=== PATIENT | male | born 1945 | race Caucasian/White ===

== ENCOUNTER → 2018-08-25 08:08 | Outpatient (CLI) | payer MEDICARE, SELFPAY ==
[2018-08-25 09:28] LABS: HEMOLYSIS < 15 (0-50); Hemoglobin A1C% w Est Avg Glu 5.5 % (4.0-6.0)
[2018-08-25 09:42] LABS: Alanine Aminotransferase 29 IU/L (21-72); Albumin Globulin Ratio 1.4 (1.0-2.8); Alkaline Phosphatase 55 U/L (38-126); Aspartate Aminotransferase 24 IU/L (17-59); BUN Creatinine Ratio 38.8 (6-22); Bilirubin Total 0.6 mg/dL (0.2-1.3); Blood Urea Nitrogen 31 mg/dL (9-20); Calcium 9.1 mg/dL (8.4-10.2); Carbon Dioxide 31 mmol/L (22-32); Chloride 104 mmol/L (98-107); Cholesterol 201 mg/dL (140-199); Estimated Glomerular Filt Rate > 60.0 mL/min (>60); Globulin 2.9 g/dL (1.7-4.1); Glucose 95 mg/dL (80-110); HDL Cholesterol 46 mg/dL (40-60); LDL Cholesterol Calculated 134 mg/dL (<100); Potassium 4.3 mmol/L (3.4-5.1); Sodium 144 mmol/L (137-145); Total Protein 6.9 g/dL (6.3-8.2); Triglycerides 104 mg/dL (35-150)
[2018-08-25 10:37] LABS: Thyroid Stimulating Hormone 2.86 uIU/mL (0.47-4.68)
[2018-08-25 14:04] LABS: Add Manual Diff / Slide Review NO; Eosinophils Percent Auto 5.1 % (2-4); Hematocrit 44.1 % (41-53); Hemoglobin 14.6 g/dL (13.5-17.5); Lymphocytes Percent Auto 28.6 % (25-40); Mean Corpuscular HGB Conc 33.1 % (30-36); Mean Corpuscular Hemoglobin 30.3 PG (26-34); Mean Corpuscular Volume 91.5 fL (80-100); Monocytes Percent Auto 8.7 % (3-14); Neutrophils Absolute Auto 3100 /uL (3000-5900); Neutrophils Percent Auto 55.6 % (50-75); Platelet Count 162 X10^3/uL (150-400); Red Blood Cell Count 4.82 X10^6/uL (4.5-5.9); Red Cell Distribution Width 13.6 % (11.6-14.8); White Blood Cell Count 5.6 X10^3/uL (4.5-11.0)
[2018-08-25 20:15] LABS: Prostate Specific Antigen 0.441 ng/mL (0.10-4.00)
== END ==
PROVIDERS: PCP Internal Medicine; Visit Provider Internal Medicine
DX: E88.81 Metabolic syndrome and other insulin resistance (principal); C61 Malignant neoplasm of prostate; E78.41 Elevated Lipoprotein(a)
CPT/HCPCS: 36415; 80053; 80061; 83036; 84153; 84443; 85025

== ENCOUNTER → 2018-10-28 13:43 | Outpatient (CLI) | payer MEDICARE, SELFPAY ==
--- NOTE | 2018-10-28 | DI.ECHO.S_ITS ---
[facility] +---------+ : : [address] : : : : [id number] : : : : Phone: [phone]+ Echocardiogram Report + + :Name: JANELL CHAVEZ A Study Date: 10/28/2018 Height: 72 in : :[facility] Weight: 175 lb : : Gender: Male BSA: 2.0 m2 : :: 1945 Age: 73 yrs BP: 170/90 mmHg: :Reason For Study: Hypertension : : Performed By: Darlin Hdez : :Referring: ZAHRA NINO S : + + Interpretation Summary Left ventricular systolic function is normal without focal wall motion abnormalities with the ejection fraction visually estimated to be 60-65%. The left ventricle is normal in size with wall thickness that is borderline increased. Diastolic parameters suggest probable normal left ventricular diastolic function and normal filling pressures. The right ventricle is normal in size and function. The right ventricular systolic pressure is estimated to be at least 22 mmHg based on an estimated right atrial pressure of 3 mm Hg. The left atrium is borderline dilated. There is mild mitral regurgitation, mild pulmonic regurgitation, and mild to moderate aortic regurgitation. The aortic root is moderately dilated and the ascending aorta is mildly enlarged. Procedure: A two-dimensional transthoracic echocardiogram with color flow and Doppler was performed. The study quality was technically good. There is no prior echocardiogram noted for this patient. Left Ventricle: The left ventricle is normal in size. Left ventricular wall thickness is borderline increased. There is no ventricular septal defect visualized. Left ventricular systolic function is normal without focal wall motion abnormalities. The ejection fraction is estimated to be 60-65%. Diastolic parameters suggest probable normal left ventricular diastolic function and normal filling pressures. Right Ventricle: The right ventricle is normal in size and function. Atria: The left atrium is borderline dilated. Right atrial size is normal. The interatrial septum is intact with no evidence for an atrial septal defect. There is no Doppler evidence for an interatrial shunt. Mitral Valve: The mitral valve leaflets are slightly calcified. The mitral valve leaflets appear mildly thickened, but open well. There is mild mitral regurgitation. Aortic Valve: The aortic valve is trileaflet. The aortic valve opens well. There is mild to moderate aortic regurgitation. There are two aortic regurgitant jets. Tricuspid Valve: The tricuspid valve leaflets are thin and pliable. There is trace tricuspid regurgitation. The right ventricular systolic pressure is estimated to be at least 22 mmHg based on an estimated right atrial pressure of 3 mm Hg. Pulmonic Valve: The pulmonic valve leaflets are thin and pliable; valve motion is normal. There is mild pulmonic regurgitation. Great Vessels: The aortic root is moderately dilated. The ascending aorta is mildly enlarged. The aortic arch is normal in size. The IVC is of normal diameter and collapses greater than 50% with a sniff. This suggests a low right atrial pressure of 3 mm Hg. Pericardium/ Pleura There is no pericardial effusion. MMode/2D Measurements & Calculations LVIDd: 4.8 cm LVOT diam: 2.5 cm LVIDs: 3.2 cm Ao root diam: 4.4 cm FS: 33.5 % Aortic Jxn: 3.1 cm EPSS: 0.53 cm asc Aorta Diam: 3.7 cm IVSd: 1.1 cm Ao Arch Diam (Prox Trans): 2.6 cm LVPWd: 1.1 cm LV roman. diameter/BSA (cm/m^2): 2.4 LV sys. diameter/BSA (cm/m^2): 1.6 LA A2 area: 22.7 cm2 RA long axis: 4.5 cm LA A4 area: 17.1 cm2 RA area: 11.9 cm2 LA length (vol): 4.8 cm RA vol: 26.5 ml LA vol: 68.1 ml RA : 13.2 ml/m2 LA vol index: 33.8 ml/m2 IVC diam: 1.4 cm RVD1 (basal): 3.7 cm RVD2 (mid): 3.4 cm TAPSE: 2.6 cm Doppler Measurements & Calculations Ao V2 max: 131.4 cm/sec LVOT Max Colt: 90.4 cm/sec Ao V2 mean: 83.7 cm/sec LV V1 max P.3 mmHg Ao max P.9 mmHg LV V1 VTI: 21.1 cm Ao mean P.3 mmHg PHONG(I,D): 3.7 cm2 Ao V2 VTI: 28.8 cm PHONG(V,D): 3.5 cm2 sev ratio: 0.73 PHONG indexed to BSA (cm^2/m^2): 1.9 AI P1/2t: 748.2 msec AI dec slope: 193.0 cm/sec2 MV E max colt: 66.7 cm/sec TR max colt: 217.5 cm/sec MV A max colt: 53.5 cm/sec TR max P.9 mmHg MV E/A: 1.2 PA V2 max: 67.3 cm/sec Med Peak E' Colt: 7.7 cm/sec PA V2 mean: 49.8 cm/sec E/E' med: 8.7 PA mean P.0 mmHg Lat Peak E' Colt: 9.2 cm/sec PA Accel Time: 0.09 sec E/E' lat: 7.3 E/e' average: 8.0 MV dec time: 0.18 sec MV P1/2t: 53.1 msec MV P1/2t max colt: 66.8 cm/sec MVA(P1/2t): 4.1 cm2 Reading Physician:THANG
== END ==
PROVIDERS: PCP Internal Medicine; Visit Provider Internal Medicine
DX: I08.0 Rheumatic disorders of both mitral and aortic valves (principal); I10 Essential (primary) hypertension
CPT/HCPCS: 93306

== ENCOUNTER → 2019-09-01 07:56 | Outpatient (CLI) | payer MEDICARE, SELFPAY ==
[2019-09-01 08:26] LABS: Add Manual Diff / Slide Review NO; Basophils Absolute Auto 100 /uL (0-100); Eosinophils Absolute Auto 200 /uL (0-450); Eosinophils Percent Auto 3.8 % (2-4); Hematocrit 43.2 % (41-53); Hemoglobin 14.2 g/dL (13.5-17.5); Lymphocytes Absolute Auto 1600 /uL (1100-4500); Mean Corpuscular HGB Conc 32.8 % (30-36); Mean Corpuscular Hemoglobin 30.2 PG (26-34); Mean Corpuscular Volume 92.1 fL (80-100); Monocytes Absolute Auto 500 /uL (0-900); Monocytes Percent Auto 8.4 % (3-14); Neutrophils Absolute Auto 3300 /uL (1500-7000); Neutrophils Percent Auto 58.8 % (50-75); Platelet Count 159 X10^3/uL (150-400); Red Blood Cell Count 4.68 X10^6/uL (4.5-5.9); Red Cell Distribution Width 13.5 % (11.6-14.8); White Blood Cell Count 5.6 X10^3/uL (4.5-11.0)
[2019-09-01 09:34] LABS: Thyroid Stimulating Hormone 3.17 uIU/mL (0.47-4.68)
[2019-09-01 10:53] LABS: HEMOLYSIS < 15 (0-50)
[2019-09-01 11:03] LABS: Alanine Aminotransferase 24 IU/L (21-72); Albumin 3.9 g/dL (3.5-5.0); Albumin Globulin Ratio 1.5 (1.0-2.8); Alkaline Phosphatase 62 U/L (38-126); Aspartate Aminotransferase 21 IU/L (17-59); BUN Creatinine Ratio 36.3 (6-22); Bilirubin Total 0.4 mg/dL (0.2-1.3); Blood Urea Nitrogen 29 mg/dL (9-20); Calcium 9.3 mg/dL (8.4-10.2); Carbon Dioxide 31 mmol/L (22-32); Chloride 104 mmol/L (98-107); Cholesterol 181 mg/dL (140-199); Estimated Glomerular Filt Rate > 60.0 mL/min (>60); Globulin 2.6 g/dL (1.7-4.1); Glucose 91 mg/dL (80-110); HDL Cholesterol 42 mg/dL (40-60); LDL Cholesterol Calculated 118 mg/dL (<100); Potassium 4.1 mmol/L (3.4-5.1); Sodium 140 mmol/L (137-145); Total Protein 6.5 g/dL (6.3-8.2); Triglycerides 106 mg/dL (35-150)
[2019-09-02 16:46] LABS: Prostate Specific Antigen 0.438 ng/mL (0.10-4.00)
== END ==
PROVIDERS: PCP Internal Medicine; Visit Provider Internal Medicine
DX: I10 Essential (primary) hypertension (principal); E78.49 Other hyperlipidemia; C61 Malignant neoplasm of prostate
CPT/HCPCS: 36415; 80053; 80061; 84153; 84443; 85025

== ENCOUNTER → 2020-07-04 10:09 | Outpatient (CLI) | payer MEDICARE, SELFPAY ==
[2020-07-05 09:14] LABS: COVID19 Sendout Not Detected (Not Detect)
== END ==
PROVIDERS: PCP Internal Medicine; Visit Provider Physician Assistant
DX: Z11.59 Encounter for screening for other viral diseases (principal)
CPT/HCPCS: 87635

== ENCOUNTER 2020-07-07 06:41 | Day surgery (SDC) | payer MEDICARE, SELFPAY ==
[2020-07-07] MEDS: SODIUM CHLORIDE 0.9% 1,000 ML 200 ML IV (07:15)
[2020-07-07 07:21] VITALS: BP 169/97; PULSE 81; RESP 16; TEMP 36.3; O2SAT 98; BMI 23.9
--- NOTE | 2020-07-07 07:33 | PM.HP.1 ---
History of Present Illness History of Present Illness Date Patient Seen: 07/07/20 Time Patient Seen: 07:33 Chief complaint: SDC Narrative: This is a 75-year-old man who is here for his 3rd screening colonoscopy. His 2 prior colonoscopies revealed no lesions, he was given 10 years between his colonoscopy procedures. He denies any blood in his stool in the melena, unexplained abdominal pain or unexplained weight loss. He denies any family history or personal history of colon polyps or colon cancers. This is he is otherwise well of and hypertension. ROS: Thirteen system review is otherwise negative other than as mentioned below and in HPI. PE: GENERAL: Well groomed and cooperative. Appears stated age. Answers questions promptly and appropriately. Vital signs noted. HENT: Normocephalic, atraumatic. Hearing intact. EYES: Conjunctiva pink, sclera white, no periorbital swelling. CARDIOVASCULAR: Regular rate. No pedal edema. RESPIRATORY: Non-tachypneic, breathing comfortably on room air. GASTROINTESTINAL: Abdomen soft and non-distended GENITALURINARY: No flank tenderness. MUSCULOSKELETAL: Equal tone and mass bilaterally. SKIN: Warm, dry, soft, appropriate color for ethnicity. No other lesions, rashes, or wounds. NEURO: Alert and Oriented X 3. No gross sensory deficits, or cognitive issues. PSYCH: Appropriate affect and mood. Patient History Family & Social History Social History: household members spouse Tobacco & Substance use: Smoking Status Never smoker alcohol intake frequency 0-2 drinks per day Substance Use Type does not use Meds Home Medications and Allergies Home Medications Medication Instructions Recorded Confirmed Type losartan 25 mg PO DAILY 07/07/20 07/07/20 History metoprolol succinate 12.5 mg PO DAILY 07/07/20 07/07/20 History Allergies Allergy/AdvReac Type Severity Reaction Status Date / Time No Known Drug Allergies Allergy Unverified 07/04/20 10:07 Exam Vital Signs (past 8 hours): - 07/07/20 07:21 Temperature 97.4 F L Pulse Rate 81 Respiratory Rate 16 Blood Pressure 169/97 H Pulse Oximetry 98 Oxygen Delivery Method Room Air Assessment & Plan Assessment and plan (1) At average risk for colon cancer: Status: Acute Assessment & Plan narrative: Risks and benefits of screening colonoscopy and possible polypectomy were discussed with the patient including risk of bleeding, perforation, need for additional procedures, risks of anesthesia. The patient desires to proceed with the colonoscopy procedure. COVID-19 COVID-19 status: Negative Result date/Date tested (Pos, Neg/Pending): 07/04/20 Time Spent With Patient Time with patient: 15-24 minutes Quality VTE Deep Vein Thrombosis/Pulmonary Embolism Present on Admission: No
--- NOTE | 2020-07-07 07:40 | PM.OP.ENDO ---
Operative Date/Time/Diagnoses Date of procedure: 07/07/20 Time of procedure: 07:40 Pre-op diagnosis: Average risk for colon cancer, ten years since last colonoscopy Post-op diagnosis: other (Prominent bulge at the appendiceal orifice, needs to be evaluated with CT scan to rule out submucosal lesion or mucinous appendix.) Procedure & Clinicians Study performed: Colonoscopy Conscious sedation performed by the endoscopist Indications: 75 yo man here for screening colonoscopy. He has had two normal colonoscopies. The last one was ten years ago. No new symptoms since then. Surgeon: Christy Hurtado Procedure Notes SCOAP/Timeout: Performed Procedure in detail: The patient was brought to the room and placed in left lateral decubitus position with all bony prominences padded. A time-out was performed and then the patient was given procedural sedation starting with 4 mg of Versed and 100 mcg of fentanyl. Vitals were monitored throughout the procedure and remained stable. Once adequately sedated, the procedure was begun. A rectal exam was performed revealing no abnormalities. The colonoscope was then introduced to the rectum and advanced to the cecum in the usual fashion. The appendiceal orifice appeared prominent as though a submucosal lesion is present, or mucinous appendix. It was probed with cold forceps. Biopsy was not taken to the possibility of mucinous appendix which will need to be diagnosed on CT scan. The cecum was identified by the appendiceal orifice, the mucosal tri-fold, and the ileocecal valve. The scope was then retracted while rotating side to side and examining each mucosal fold. At the conclusion of the procedure retroflexion was performed and small grade 1-2 internal hemorrhoids without stigmata of bleeding were seen. The scope was then withdrawn from the rectum the procedure was concluded. The patient tolerated the procedure well and was transferred to the PACU in stable condition. Scope withdrawal time: 8 Sedation minutes: 14 Findings: other findings (Prominent appendiceal orifice, may be normal variant or submucosal lesion, or mucinous appendix) Specimen(s): none sent Complications: none Impression: Normal colon, no diverticulosis or polyps. The patient is a prominence at the appendiceal orifice, consistent with a possible submucosal mass or mucinous appendix. May also be normal anatomic variant Post-procedure Recommendations: Colonscopy in 10 years (As long as CT scan is normal) and Other recommendation (CT scan of abdomen and pelvis with IV contrast to rule out submucosal lesion at the base of the appendix) Follow up: as needed Disposition: PACU
[2020-07-07] MEDS: fentaNYL 250 MCG/5 ML INJ IV (07:44)
[2020-07-07] MEDS: MIDAZOLAM 5 MG/5 ML VIAL IV (07:45)
[2020-07-07 08:02] VITALS: BP 118/72; PULSE 55; RESP 10; TEMP 36.6; O2SAT 96
[2020-07-07 08:07] VITALS: BP 130/81; PULSE 64; RESP 11; O2SAT 97
[2020-07-07 08:15] VITALS: BP 130/77; PULSE 58; RESP 12; O2SAT 97
[2020-07-07 08:21] VITALS: BP 130/76; PULSE 55; RESP 12; TEMP 36.6; O2SAT 98
[2020-07-07 08:43] LABS: Estimated Glomerular Filt Rate > 60.0 mL/min (>60)
[2020-07-07 08:45] VITALS: BP 125/71; PULSE 54; RESP 16; TEMP 36.1; O2SAT 99
== END 2020-07-07 09:00 | disposition home or self-care (01) ==
PROVIDERS: PCP Internal Medicine; Referring Provider Internal Medicine; Visit Provider Surgery
PROC: 0DJD8ZZ Inspection of Lower Intestinal Tract, Via Natural or Artificial Opening Endoscopic (ICD-10-PCS; CPT 45378; principal; 2020-07-07 07:45)
DX: Z12.11 Encounter for screening for malignant neoplasm of colon (principal); K64.0 First degree hemorrhoids; K38.8 Other specified diseases of appendix
CPT/HCPCS: G0121; 36415; 82565; 99152; J2250; J3010

== ENCOUNTER → 2020-07-19 10:28 | Outpatient (CLI) | payer MEDICARE, SELFPAY ==
--- NOTE | 2020-07-19 11:36 | DI.CT.S_ITS ---
PROCEDURE: CT ABDOMEN PELVIS W CON INDICATIONS: prominence at base of appendix seen on colonoscopy TECHNIQUE: After the administration of oral and intravenous contrast, 5 mm thick sections acquired from the diaphragms to the symphysis. 5 mm thick coronal and sagittal reformats were performed. For radiation dose reduction, the following was used: automated exposure control, adjustment of mA and/or kV according to patient size. COMPARISON: None. FINDINGS: Image quality: Excellent. ABDOMEN: Lung bases: Lung bases are clear. Heart size is normal. Solid organs: Liver is normal in size. Well-circumscribed hypodense focus in the left lobe of the liver which has the appearance of a benign cyst or hemangioma. A few additional punctate hypodensities which are too small to further characterize. Gallbladder is unremarkable. Biliary system is non-dilated. Pancreas enhances normally. Spleen is normal in size and enhancement. Punctate hypodensity in the spleen likely a hemangioma. No adrenal nodules. Kidneys are normal in size and enhancement, without hydronephrosis. Small simple right renal cyst. Peritoneum and bowel: There is increased density at the origin of the appendix measuring 1.2 cm in length and 0.5 cm in width, (4/33). The appendix is not dilated. No calcified appendicolith. No periappendiceal stranding or fluid. The tip of the appendix measures 0.3 cm. No small bowel obstruction. No free fluid or air. Nodes and vessels: No retroperitoneal or mesenteric adenopathy. Aorta and inferior vena cava are normal in caliber. Miscellaneous: No ventral hernias. PELVIS: Genitourinary: Bladder is unremarkable. Prominent prostate gland with median lobe hypertrophy. Brachytherapy seeds. Miscellaneous: No inguinal hernias or adenopathy. Pelvic sidewall clips. Bones: No suspicious bony lesions. No vertebral body compression fractures. IMPRESSION: 1. Increased density at the origin of the appendix likely corresponding to the abnormality seen on prior colonoscopy. Primary diagnostic considerations include a small appendiceal neoplasm versus inspissated secretions. 2. Appendix is not dilated. 3. No adenopathy. 4. Prostate brachytherapy seeds. No sclerotic osseous lesion. Dictated by: Rio Vizcarra M.D. on 07/19/2020 at 11:23 Approved by: Rio Vizcarra M.D. on 07/19/2020 at 11:33
== END ==
PROVIDERS: PCP Internal Medicine; Referring Provider Surgery; Visit Provider Surgery
DX: R93.3 Abnormal findings on diagnostic imaging of other parts of digestive tract (principal); N28.1 Cyst of kidney, acquired
CPT/HCPCS: 74177; Q9967

== ENCOUNTER → 2020-08-20 14:41 | Outpatient (CLI) | payer MEDICARE, SELFPAY ==
[2020-08-21 07:45] LABS: COVID19 Sendout Not Detected (Not Detect)
== END ==
PROVIDERS: PCP Internal Medicine; Visit Provider Physician Assistant
DX: Z11.59 Encounter for screening for other viral diseases (principal)
CPT/HCPCS: 87635

== ENCOUNTER 2020-08-23 13:10 | Day surgery (SDC) | payer MEDICARE, SELFPAY ==
[2020-08-17 14:51] VITALS: BMI 23.7
[2020-08-23] VITALS (8 sets, daily range): BP systolic 121–178; BP diastolic 58–91; PULSE 60–83; RESP 10–17; TEMP 36.3–36.6; O2SAT 93–98; BMI 23.7
--- NOTE | 2020-08-23 | PATH_ITS ---
[facility] Accession Number: [id number] . 01 Material submitted: . appendix - APPENDIX . 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 Fibrous obliteration of tip. No evidence of dysplasia or malignancy. MRV 08/28/2020 1614 Local . 02 Electronically signed: . Bella Lucas MD, Pathologist NPI- [id number] . 01 Gross description: . Received in formalin, labeled appendix, and consists of a 5.0 cm in length by 0.5 cm in diameter vermiform appendix with attached agarwal-yellow lobulated mesoappendix measuring 5.0 x 4.0 x 2.5 cm in aggregate. There is a 2.0 x 0.9 cm portion of possible attached cecal mucosa at the margin. Sectioning reveals a 0.5 x 0.5 x 0.5 cm cyst located 0.1 cm from the margin, which contains a clear serous fluid. The mucosa is agarwal and the lumen measures 0.3 cm in diameter. No perforations are identified. [employer] sections are submitted. . A1: margin with a portion of cyst, perpendicularly sectioned (blue). A2-A4: remainder of vermiform appendix and other half of cyst. ([id number]) A5-A15: mesoappendix, entirely submitted. ([id number]) /MRV 08/25/2020 1654 Local . 02 Pathologist provided ICD-10: K38.2 . 02 CPT . 534331 Performed at: 01 [facility] [address] [place] [address] [address] [facility], [place], [place] [id number] MD Ernesto Hanson MD Phone: [phone] Performed at: [facility] [address] [place] [id number] MD Bella Lucas MD Phone: [phone]
--- NOTE | 2020-08-23 13:57 | PM.PREOP ---
Pre-operative Note COVID-19 COVID-19 status: Negative Result date/Date tested (Pos, Neg/Pending): 08/20/20 Interval Note History & Physical reviewed/Exam performed by Physician: Yes Changes to H&P: No
[2020-08-23] MEDS: LACTATED RINGERS 1,000 ML 100 ML IV (14:09)
--- NOTE | 2020-08-23 15:03 | SUR.OPER ---
Supine on padded OR bed, head on pillow, left arm padded and tucked at side, legs uncrossed, safety belt at thigh, tape over blanket over lower legs .
[2020-08-23] MEDS: PIPERACILLIN-TAZO 3.375 GM/50 ML FROZ.PIGGY IV (15:31)
[2020-08-23] MEDS: ONDANSETRON 4 MG/2 ML INJ IV (15:45)
[2020-08-23] MEDS: BUPIVACAINE 0.25% W/ EPI 30 ML VIAL INJ (15:49)
--- NOTE | 2020-08-23 15:53 | PM.OP.1 ---
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 Sequential compression devices were placed on both legs and turned on. Appropriate perioperative antibiotics were given prior to the start of surgery. General anesthesia was induced the patient was intubated. Mix catheter was placed sterilely in the bladder. The abdomen was prepped and draped in sterile fashion. Surgical time-out was conducted. Local anesthetic was injected under the skin just superior to the umbilicus and a 5 mm vertical incision was made at this site. The umbilical stalk was grasped with a Manpreet and elevated. A Veress needle was passed through the fascia into proper position. The position was tested with a saline drop test which was appropriate for intra-abdominal Veress needle placement. The abdomen was then insufflated in the usual fashion. Once insufflated to 15 mm Hg the Veress needle was removed and a 5 mm optical trocar was placed under direct vision using a 5 mm 30 degree scope. Once the camera was inside the abdomen I took a look around. There was no injury from port placement. Two additional ports were placed in a similar fashion in the suprapubic position and left lower quadrant. The umbilical port was upsized to a 12 mm port. The patient was placed in Trendelenburg position with right side up. The omentum and small bowel was swept the left and the cecum was exposed. The appendix was grasped and elevated. It was traced out to its base as it entered the cecum. The mesoappendix was divided with Ligasure. The ileal sail was divided to expose the base of the appendix and cecum. A blue load 60 mm endoscopic stapler was brought into the field and used to transect the cecum just below the base of the appendix. There was good hemostasis at the staple line. There was no spillage of stool. The specimen was removed from the abdomen using an Endocatch bag through the umbilical port. I used the laparoscopic suture passer and closed the umbilical port site with 0 Vicryl suture through the fascia. The specimen was opened on the back table, removing the staple line. A small subcutaneous nodule was palpated at the base of the appendix. No surrounding thickening of the cecum or appendix, evidence of inflammation, or other abnormalities were seen in the surrounding structures. At this point the insufflation was removed from the abdomen and the port sites were closed with, 3-O Vicryl in the subcutaneous layers, and 4 Monocryl in the skin. Each port site was sealed with Dermabond. Local anesthetic was given at each of the port sites and in the fascia. This concluded the procedure. At this point the needle sponge and instrument counts were correct. The appendix was passed off the table for pathology. The patient was awakened from anesthesia and extubated. The patient was transferred to the postanesthesia care unit in stable condition. Complications: none Post-operative Condition: stable Disposition: PACU
--- NOTE | 2020-08-23 15:57 | SUR.PHASEI ---
Pt states nausea has gone away with zofran, sitting up taking ice chips slowly
--- NOTE | 2020-08-23 16:45 | SUR.PHASEII ---
PT UP TO BR TO VOID,PT PASSED LUCIO SIZED CLOT AND HAD BLOODY URINE, DR COTTON NOTIFIED AND STATED OK TO D/C PT HOME WITH PREVIOUS INSTRUCTIONS, PT REMINDED THAT IF NO VOID FOR 8 HOURS HE IS TO COME TO THE ER. PT AND BOTH EXPRESSED READINESS TO GO HOME. OP SITES CLEAN AND DRY, TOLERATING FLUIDS AND DENIED NEED FOR PAIN MEDICATIONS AT THAT TIME.
== END 2020-08-23 16:38 | disposition home or self-care (01) ==
PROVIDERS: PCP Internal Medicine; Referring Provider Surgery; Visit Provider Surgery
PROC: 0DTJ4ZZ Resection of Appendix, Percutaneous Endoscopic Approach (ICD-10-PCS; CPT 44970; principal; 2020-08-23 14:45)
DX: K38.8 Other specified diseases of appendix (principal); Z85.46 Personal history of malignant neoplasm of prostate
CPT/HCPCS: 44970; 81015; 87086; J1100; J1885; J2250; J2405; J2543; J2704; J3010

== ENCOUNTER 2020-08-23 23:50 | Emergency (ER) | payer MEDICARE, SELFPAY ==
[2020-08-24 00:15] VITALS: BP 204/122; PULSE 125; RESP 29; TEMP 36.9; O2SAT 96; BMI 23.8
--- NOTE | 2020-08-24 00:17 | ED.MALEGU ---
HPI - Male Genitourinary General Chief complaint: Urogenital-Male Stated complaint: bladder in spasms had surgery today Time Seen by Provider: 08/24/20 00:02 Source: patient and family Mode of arrival: Ambulatory History of Present Illness HPI Narrative: Patient here with . Complaints of urinary retention. Last voided 6:00 p.m. tonight. 6 hours ago. 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 Mix catheter was placed for the surgery. Patient has history of enlarged prostate. Followed by his primary care physician no service by urology. Is not on Flomax. Patient states he was able to void after surgery 4 years discharged. Did have some blood in it/hematuria. At home continue to have hematuria and blood clots Related Data Home Medications Medication Instructions Recorded Confirmed losartan 25 mg PO DAILY 07/07/20 08/23/20 metoprolol succinate 12.5 mg PO DAILY 07/07/20 08/23/20 Previous Rx's Medication Instructions Recorded docusate sodium 100 mg PO BID #20 cap 08/23/20 oxycodone 5 mg PO Q4-6H PRN #20 tab 08/23/20 cephalexin 500 mg PO TID #15 cap 08/24/20 tamsulosin 0.4 mg PO DAILY #7 cap 08/24/20 Allergies Allergy/AdvReac Type Severity Reaction Status Date / Time No Known Drug Allergies Allergy Verified 08/23/20 13:46 Review of Systems Review of Systems Narrative: GENERAL: Denies chills, fatigue, malaise, fever, sweats. HEENT: Denies sinus pain, ear pain, sore throat, difficulty swallowing, dizziness. RESPIRATORY: Denies dyspnea, cough, wheezing, hemoptysis, sputum. CARDIOVASCULAR: Denies chest pain, palpitations, orthopnea, edema, GASTROINTESTINAL: Denies nausea, vomiting, abdominal pain, diarrhea, constipation, melena. : Denies dysuria, frequency, incontinence, complains of hematuria, urinary retention. MUSCULOSKELETAL: denies weakness, joint pain, or bony pain SKIN: Denies rash, skin lesions NEUROLOGIC: Denies weakness, headache, numbness, change in speech, confusion, seizures, incoordination. PSYCHIATRIC: No concerning psychosocial issues. ROS Unobtainable: All systems reviewed & are unremarkable except as noted in HPI and below Patient History Medical History Erectile dysfunction (Inactive) Essential hypertension (Inactive) History of brachytherapy (Inactive) History of prostate cancer (Inactive) HTN (hypertension) (Acute) Hx of brachytherapy (Acute 06/1998) Hypertensive heart disease without CHF (Inactive) Irregular heartbeat (Acute) Surgical History History of laparotomy (Inactive) Social History household members: spouse Smoking Status: Never smoker alcohol intake: current Smoking Status: Never smoker alcohol intake frequency: 0-2 drinks per day Substance Use Type: does not use Exam Narrative Exam Narrative: GENERAL: patient appears stated age. Well-nourished, well-developed patient, in no distress, not toxic HEAD: Atraumatic. Normocephalic. GASTROINTESTINAL: Abdomen soft, mild diffuse tenderness appropriate status post surgery. Incisions clean dry intact. Bowel sounds present. No peritoneal signs. : Pants off. Normal external exam. Tenderness over suprapubic region. NEURO: AOx4. SKIN: No rash or erythema of visible areas PSYCH: Not anxious, is cooperative Initial Vital Signs Initial Vital Signs: Vital Signs Temperature 98.5 F 08/24/20 00:15 Pulse Rate 125 H 08/24/20 00:15 Respiratory Rate 29 H 08/24/20 00:15 Blood Pressure 204/122 H 08/24/20 00:15 Pulse Oximetry 96 08/24/20 00:15 Course Orders Ordered: ED Orders 08/24/20 00:50 Urine Culture Stat Urine Microscopic Stat Discontinued Medications Cephalexin HCl (Keflex) 500 mg PO NOW ONE Stop: 08/24/20 01:56 Lidocaine HCl (Urojet) 5 ml TOP NOW ONE Stop: 08/24/20 00:13 Last Admin: 08/24/20 00:20 Dose: 5 ml Documented by: JANEL Tamsulosin HCl (Flomax) 0.4 mg PO NOW ONE Stop: 08/24/20 00:18 Last Admin: 08/24/20 01:05 Dose: 0.4 mg Documented by: ROSSANA Reevaluation(s) Reevaluation #1: Feels much better after Mix insertion. 550 mL of urine out Time: :03 Consultations Consultation #1: s/w dr go, patient can follow-up with the office, call in the morning for appointment. Time: 01:55 Vital Signs Vital signs: Vital Signs - 8 hr 08/24/20 00:15 08/24/20 00:35 08/24/20 00:36 Temperature 98.5 F Pulse Rate 125 H 94 H 93 H Respiratory Rate 29 H Blood Pressure 204/122 H 138/76 Pulse Oximetry 96 92 91 08/24/20 01:00 08/24/20 01:30 Temperature Pulse Rate 89 70 Respiratory Rate Blood Pressure 142/77 H 131/76 Pulse Oximetry 92 94 MDM - Male Genitourinary Differential Diagnosis Differential diagnosis: Likely urinary tract infection and acute retention of urine Lab Data Labs: Lab Results 08/24/20 Range/Units 00:50 Urine RBC >100/hpf H (0-5/HPF) Urine WBC 1-5/hpf (0-5/HPF) Ur Squamous Epith Cells 0-1 /hpf (0-5/HPF) Amorphous Sediment 1+ Urine Bacteria Few (2-10) H (None) Ur Culture Indicated? Specimen cultured MDM Narrative Medical decision making narrative: Appropriate for discharge home. Blood pressure improved at time of discharge feeling much better. Discharge Plan Departure Patient Disposition: Home Clinical Impression: Acute retention of urine Discharge Date/Time: 08/24/20 02:23 Instructions: How to Care for Your Mix Catheter -- Male, DI for Urinary Retention in Men Activity Restrictions/Additional Instructions: Call provided urology office in the morning for office recheck time and when to remove Mix bag. Return if worsening questions or concerns. Be sure to machine operator picker your antibiotic this morning at your pharmacy Prescriptions: New tamsulosin 0.4 mg capsule 0.4 mg PO DAILY Qty: 7 RF: 0 cephalexin 500 mg capsule 500 mg PO TID Qty: 15 RF: 0 No Action losartan 25 mg tablet 25 mg PO DAILY RF: 0 metoprolol succinate 25 mg tablet extended release 24 hr 12.5 mg PO DAILY RF: 0 oxycodone 5 mg tablet 5 mg PO Q4-6H PRN (Reason: Postoperative pain) Qty: 20 RF: 0 docusate sodium 100 mg capsule 100 mg PO BID Qty: 20 RF: 0 Referrals: Geoff Bains MD [Primary Care Provider] - Lavinia Go MD [Non-Staff] -
[2020-08-24] MEDS: LIDOCAINE 2% (UROJET) 5 ML GEL TOP (00:20)
[2020-08-24 00:35] VITALS: PULSE 94; O2SAT 92
[2020-08-24 00:36] VITALS: BP 138/76; PULSE 93; O2SAT 91
[2020-08-24 01:00] VITALS: BP 142/77; PULSE 89; O2SAT 92
[2020-08-24] MEDS: TAMSULOSIN 0.4 MG CAPSULE PO (01:05)
--- NOTE | 2020-08-24 01:06 | PC.NURSE ---
Pt had cath during surgery yesterday. states hasn't been able to urinate since 1800. When he urinated it was mostly blood.
[2020-08-24 01:14] LABS: Amorphous Sediment Urine 1+; Bacteria Urine Few (2-10); RBC Urine >100/HPF (0-5/HPF); Squamous Epithelial Cell Urine 0-1 /HPF (0-5/HPF); WBC Urine 1-5/HPF (0-5/HPF)
[2020-08-24 01:15] LABS: Culture Indicated Urine Specimen Cultured
[2020-08-24 01:30] VITALS: BP 131/76; PULSE 70; O2SAT 94
--- NOTE | 2020-08-24 01:47 | PC.NURSE ---
irrigated bladder with 2000ml of normal saline
== END 2020-08-24 02:23 | disposition home or self-care (01) ==
PROVIDERS: Emergency Provider Emergency Medicine; PCP Internal Medicine
DX: R33.8 Other retention of urine (principal); R31.9 Hematuria, unspecified
CPT/HCPCS: 51701; 99284

== ENCOUNTER → 2020-09-09 08:15 | Outpatient (CLI) | payer MEDICARE, SELFPAY ==
[2020-09-09 09:08] LABS: Add Manual Diff / Slide Review NO; Basophils Absolute Auto 100 /uL (0-100); Basophils Percent Auto 1.2 % (0-2); Eosinophils Absolute Auto 200 /uL (0-450); Eosinophils Percent Auto 2.6 % (2-4); Hematocrit 42.8 % (41-53); Hemoglobin 14.3 g/dL (13.5-17.5); Lymphocytes Absolute Auto 1700 /uL (1100-4500); Lymphocytes Percent Auto 26.4 % (25-40); Mean Corpuscular HGB Conc 33.4 % (30-36); Mean Corpuscular Hemoglobin 30.6 PG (26-34); Mean Corpuscular Volume 91.5 fL (80-100); Monocytes Absolute Auto 400 /uL (0-900); Monocytes Percent Auto 6.8 % (3-14); Neutrophils Absolute Auto 3900 /uL (1500-7000); Platelet Count 203 X10^3/uL (150-400); Red Blood Cell Count 4.68 X10^6/uL (4.5-5.9); Red Cell Distribution Width 13.4 % (11.6-14.8); White Blood Cell Count 6.3 X10^3/uL (4.5-11.0)
[2020-09-09 09:38] LABS: Alanine Aminotransferase 21 IU/L (<50); Albumin 4.3 g/dL (3.5-5.0); Albumin Globulin Ratio 1.4 (1.0-2.8); Alkaline Phosphatase 57 U/L (38-126); Aspartate Aminotransferase 20 IU/L (17-59); BUN Creatinine Ratio 25.3 (6-22); Bilirubin Total 0.5 mg/dL (0.2-1.3); Blood Urea Nitrogen 23 mg/dL (9-20); Calcium 9.6 mg/dL (8.4-10.2); Carbon Dioxide 30 mmol/L (22-32); Chloride 104 mmol/L (98-107); Cholesterol 211 mg/dL (140-199); Estimated Glomerular Filt Rate > 60.0 mL/min (>60); Globulin 3.1 g/dL (1.7-4.1); Glucose 102 mg/dL (80-110); HDL Cholesterol 35 mg/dL (40-60); HEMOLYSIS < 15 (0-50); LDL Cholesterol Calculated 134 mg/dL (<100); Potassium 4.1 mmol/L (3.4-5.1); Sodium 140 mmol/L (137-145); Total Protein 7.4 g/dL (6.3-8.2); Triglycerides 209 mg/dL (35-150)
[2020-09-09 10:01] LABS: Prostate Specific Antigen 0.522 ng/mL (0.10-4.00)
[2020-09-09 10:20] LABS: TSH w/ Reflex to FT4 2.37 uIU/mL (0.47-4.68)
== END ==
PROVIDERS: PCP Internal Medicine; Referring Provider Internal Medicine; Visit Provider Internal Medicine
DX: C61 Malignant neoplasm of prostate (principal); D46.4 Refractory anemia, unspecified; E03.9 Hypothyroidism, unspecified; E78.5 Hyperlipidemia, unspecified
CPT/HCPCS: 36415; 80053; 80061; 84153; 84443; 85025

== ENCOUNTER → 2020-12-15 15:56 | Outpatient (CLI) | payer MEDICARE, SELFPAY ==
[2020-12-15] MEDS: COVID-19 VACC #1, MRNA(MOD) 100 MCG/0.5 ML VIAL IM (16:38)
== END ==
PROVIDERS: PCP Internal Medicine; Visit Provider Internal Medicine
DX: Z23 Encounter for immunization (principal)
CPT/HCPCS: 0011A; 91301

== ENCOUNTER → 2021-01-12 15:33 | Outpatient (CLI) | payer MEDICARE, SELFPAY ==
[2021-01-12] MEDS: COVID-19 VACC #2, MRNA(MOD) 100 MCG/0.5 ML VIAL IM (15:39)
== END ==
PROVIDERS: PCP Internal Medicine; Visit Provider Internal Medicine
DX: Z23 Encounter for immunization (principal)
CPT/HCPCS: 0012A; 91301

== ENCOUNTER → 2021-08-17 08:31 | Outpatient (CLI) | payer MEDICARE, SELFPAY ==
[2021-08-17 09:14] LABS: Add Manual Diff / Slide Review NO; Basophils Absolute Auto 0 /uL (0-100); Basophils Percent Auto 0.9 % (0-2); Eosinophils Absolute Auto 300 /uL (0-450); Hematocrit 41.7 % (41-53); Lymphocytes Absolute Auto 1300 /uL (1100-4500); Mean Corpuscular HGB Conc 33.5 % (30-36); Mean Corpuscular Hemoglobin 30.5 PG (26-34); Mean Corpuscular Volume 91.1 fL (80-100); Monocytes Absolute Auto 400 /uL (0-900); Monocytes Percent Auto 7.9 % (3-14); Neutrophils Absolute Auto 3100 /uL (1500-7000); Neutrophils Percent Auto 61.2 % (50-75); Platelet Count 144 X10^3/uL (150-400); Red Blood Cell Count 4.58 X10^6/uL (4.5-5.9); Red Cell Distribution Width 13.8 % (11.6-14.8); White Blood Cell Count 5.1 X10^3/uL (4.5-11.0)
[2021-08-17 09:17] LABS: Hemoglobin A1C% w Est Avg Glu 5.5 % (4.0-6.0)
[2021-08-17 09:52] LABS: Alanine Aminotransferase 23 IU/L (<50); Albumin 3.9 g/dL (3.5-5.0); Albumin Globulin Ratio 1.4 (1.0-2.8); Alkaline Phosphatase 62 U/L (38-126); Aspartate Aminotransferase 26 IU/L (17-59); BUN Creatinine Ratio 27.3 (6-22); Bilirubin Total 0.3 mg/dL (0.2-1.3); Blood Urea Nitrogen 24 mg/dL (9-20); Calcium 9.2 mg/dL (8.4-10.2); Carbon Dioxide 33 mmol/L (22-32); Chloride 105 mmol/L (98-107); Cholesterol 205 mg/dL (140-199); Estimated Glomerular Filt Rate > 60.0 mL/min (>60); Globulin 2.8 g/dL (1.7-4.1); Glucose 96 mg/dL (80-110); HDL Cholesterol 42 mg/dL (40-60); HEMOLYSIS < 15 (0-50); LDL Cholesterol Calculated 135 mg/dL (<100); Potassium 4.4 mmol/L (3.4-5.1); Sodium 140 mmol/L (137-145); Total Protein 6.7 g/dL (6.3-8.2); Triglycerides 142 mg/dL (35-150)
[2021-08-17 10:18] LABS: Prostate Specific Antigen 0.461 ng/mL (0.10-4.00)
[2021-08-17 10:20] LABS: Thyroid Stimulating Hormone 2.54 uIU/mL (0.47-4.68)
== END ==
PROVIDERS: PCP Internal Medicine; Referring Provider Internal Medicine; Visit Provider Internal Medicine
DX: E88.81 Metabolic syndrome and other insulin resistance (principal); I10 Essential (primary) hypertension; C61 Malignant neoplasm of prostate; E78.41 Elevated Lipoprotein(a)
CPT/HCPCS: 36415; 80053; 80061; 83036; 84153; 84443; 85025

== ENCOUNTER → 2022-01-21 12:53 | Outpatient (CLI) | payer MEDICARE, SELFPAY ==
--- NOTE | 2022-01-21 | DI.RAD.S_ITS ---
PROCEDURE: XR FOOT RT MIN 3V INDICATIONS: Pain in right foot TECHNIQUE: 3 views of the foot were acquired. COMPARISON: None. FINDINGS: Bones: No fractures or dislocations. No suspicious bony lesions. Mild hallux valgus metatarsus prima varus alignment and medial bunion. 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 Soft tissues: No tibiotalar joint effusion. Achilles tendon appears normal. IMPRESSION: 1. No acute fracture. No osseous lesion. If clinical suspicion and/orsymptoms persist, further assessment with repeat plainfilms, or advanced imaging (e.g., CT, MRI, or bone scan) may be helpful for further assessment. 2. 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 Dictated by: José Antonio Eller [facility] Interpreted: Orlando Martin MD on 01/21/2022 at 14:10 Transcribed by: LILIYA on 01/21/2022 at 14:12 Approved by: Orlando Martin M.D. on 01/21/2022 at 20:00
== END ==
PROVIDERS: PCP Internal Medicine; Referring Provider Internal Medicine; Visit Provider Internal Medicine
DX: M19.071 Primary osteoarthritis, right ankle and foot (principal); M20.11 Hallux valgus (acquired), right foot; M21.611 Bunion of right foot; M79.671 Pain in right foot
CPT/HCPCS: 73630

== ENCOUNTER → 2022-02-08 13:50 | Outpatient (CLI) | payer MEDICARE, SELFPAY ==
--- NOTE | 2022-02-08 13:55 | DI.RAD.S_ITS ---
PROCEDURE: XR THORACIC SPINE 2V INDICATIONS: LOW BACK PAIN, CERVICAL SUBLUXATION TECHNIQUE: 2 views of the thoracic spine were acquired. COMPARISON: None. FINDINGS: Bones: No fractures or dislocations. No suspicious bony lesions. 12 pairs of ribs are noted, and appear intact where visualized. Endplate osteophytosis. Soft tissues: No paravertebral stripe thickening. IMPRESSION: No significant abnormality. Dictated by: Frank Van M.D. on 02/08/2022 at 14:25 Approved by: Frank Van M.D. on 02/08/2022 at 14:26
--- NOTE | 2022-02-08 13:55 | DI.RAD.S_ITS ---
PROCEDURE: XR CERVICAL SPINE 2V OR 3V INDICATIONS: LOW BACK PAIN, CERVICAL SUBLUXATION TECHNIQUE: 3 view(s) of the cervical spine were acquired. COMPARISON: None. FINDINGS: Bones: No fractures or dislocations to the C7 level. Mild disc height loss with endplate osteophytosis, most prominent at C5-7. The lateral masses of C1 appear intact on the odontoid view. No suspicious bony lesions. Soft tissues: No prevertebral soft tissue swelling. IMPRESSION: Cervical spine degeneration as detailed above. Dictated by: Frank Van M.D. on 02/08/2022 at 14:26 Approved by: Frank Van M.D. on 02/08/2022 at 14:26
--- NOTE | 2022-02-08 13:55 | DI.RAD.S_ITS ---
PROCEDURE: XR LUMBAR SPINE 2-3V INDICATIONS: LOW BACK PAIN, CERVICAL SUBLUXATION TECHNIQUE: 3 views of the lumbar spine were acquired. COMPARISON: None. FINDINGS: Bones: 5 [id number] vertebrae are present. Moderate disc height loss at L5-S1 with facet arthrosis. No vertebral body compression fractures. No suspicious bony lesions. Soft tissues: Overlying bowel gas pattern is normal. No suspicious soft tissue calcifications. IMPRESSION: Lumbar spine degeneration as detailed above. Dictated by: Frank Van M.D. on 02/08/2022 at 14:25 Approved by: Frank Van M.D. on 02/08/2022 at 14:25
== END ==
PROVIDERS: PCP Internal Medicine; Referring Provider Internal Medicine; Visit Provider Internal Medicine
DX: M50.322 Other cervical disc degeneration at C5-C6 level (principal); M54.50 Low back pain, unspecified; M99.11 Subluxation complex (vertebral) of cervical region; M51.37 Other intervertebral disc degeneration, lumbosacral region; M99.04 Segmental and somatic dysfunction of sacral region
CPT/HCPCS: 72040; 72070; 72100

== ENCOUNTER → 2022-11-19 09:15 | Outpatient (CLI) | payer MEDICARE, SELFPAY ==
[2022-11-19 10:17] LABS: Hematocrit 40.6 % (41-53); Hemoglobin 13.3 g/dL (13.5-17.5); Mean Corpuscular HGB Conc 32.8 % (30-36); Mean Corpuscular Hemoglobin 30.4 PG (26-34); Mean Corpuscular Volume 92.8 fL (80-100); Platelet Count 144 X10^3/uL (150-400); Red Blood Cell Count 4.37 X10^6/uL (4.5-5.9); Red Cell Distribution Width 13.7 % (11.6-14.8); White Blood Cell Count 5.3 X10^3/uL (4.5-11.0)
[2022-11-19 10:43] LABS: Alanine Aminotransferase 29 IU/L (<50); Albumin 3.8 g/dL (3.5-5.0); Albumin Globulin Ratio 1.2 (1.0-2.8); Alkaline Phosphatase 61 U/L (38-126); Aspartate Aminotransferase 23 IU/L (17-59); BUN Creatinine Ratio 28.4 (6-22); Bilirubin Total 0.4 mg/dL (0.2-1.3); Blood Urea Nitrogen 23 mg/dL (9-20); Calcium 8.8 mg/dL (8.4-10.2); Carbon Dioxide 28 mmol/L (22-32); Chloride 104 mmol/L (98-107); Cholesterol 143 mg/dL (140-199); Estimated Glomerular Filt Rate > 60 mL/min (>60); Globulin 3.2 g/dL (1.7-4.1); Glucose 102 mg/dL (80-110); HDL Cholesterol 42 mg/dL (40-60); HEMOLYSIS < 15 (0-50); LDL Cholesterol Calculated 73 mg/dL (<100); Potassium 4.2 mmol/L (3.4-5.1); Sodium 140 mmol/L (137-145); Triglycerides 141 mg/dL (35-150)
[2022-11-19 11:04] LABS: TSH w/ Reflex to FT4 2.32 uIU/mL (0.47-4.68)
[2022-11-19 11:15] LABS: Prostate Specific Antigen 0.583 ng/mL (0.10-4.00)
== END ==
PROVIDERS: PCP Internal Medicine; Referring Provider Internal Medicine; Visit Provider Internal Medicine
DX: D37.3 Neoplasm of uncertain behavior of appendix (principal); E78.2 Mixed hyperlipidemia; Z85.46 Personal history of malignant neoplasm of prostate; I10 Essential (primary) hypertension; N13.8 Other obstructive and reflux uropathy; N40.1 Benign prostatic hyperplasia with lower urinary tract symptoms
CPT/HCPCS: 36415; 80053; 80061; 84153; 84443; 85027

== ENCOUNTER → 2023-12-10 08:18 | Outpatient (CLI) | payer OTHER, SELFPAY ==
[2023-12-10 10:30] LABS: Alanine Aminotransferase 41 IU/L (<50); Albumin 3.8 g/dL (3.5-5.0); Albumin Globulin Ratio 1.4 (1.0-2.8); Alkaline Phosphatase 57 U/L (38-126); Aspartate Aminotransferase 30 IU/L (17-59); BUN Creatinine Ratio 29.2 (6-22); Bilirubin Total 0.5 mg/dL (0.2-1.3); Blood Urea Nitrogen 26 mg/dL (9-20); Calcium 9.2 mg/dL (8.4-10.2); Carbon Dioxide 28 mmol/L (22-32); Chloride 105 mmol/L (98-107); Cholesterol 137 mg/dL (140-199); Estimated Glomerular Filt Rate > 60 mL/min (>60); Globulin 2.7 g/dL (1.7-4.1); Glucose 90 mg/dL (80-110); HDL Cholesterol 41 mg/dL (40-60); HEMOLYSIS < 15 (0-50); LDL Cholesterol Calculated 70 mg/dL (<100); Potassium 4.7 mmol/L (3.4-5.1); Sodium 139 mmol/L (137-145); Total Protein 6.5 g/dL (6.3-8.2); Triglycerides 130 mg/dL (35-150)
[2023-12-10 10:58] LABS: Prostate Specific Antigen 0.436 ng/mL (0.10-4.00)
== END ==
PROVIDERS: PCP Internal Medicine; Referring Provider Internal Medicine; Visit Provider Internal Medicine
DX: E78.2 Mixed hyperlipidemia (principal); Z85.46 Personal history of malignant neoplasm of prostate; I10 Essential (primary) hypertension
CPT/HCPCS: 36415; 80053; 80061; 84153

== ENCOUNTER → 2024-12-16 11:52 | Outpatient (CLI) | payer MEDICARE, SELFPAY ==
[2024-12-16 12:31] LABS: Hematocrit 41.1 % (41-53); Hemoglobin 13.5 g/dL (13.5-17.5); Mean Corpuscular HGB Conc 32.8 % (30-36); Mean Corpuscular Volume 94.5 fL (80-100); Platelet Count 166 X10^3/uL (150-400); Red Blood Cell Count 4.35 X10^6/uL (4.5-5.9); Red Cell Distribution Width 13.6 % (11.6-14.8); White Blood Cell Count 6.7 X10^3/uL (4.5-11.0)
[2024-12-16 13:07] LABS: Aspartate Aminotransferase 27 IU/L (17-59); BUN Creatinine Ratio 30.7 (6-22); Blood Urea Nitrogen 27 mg/dL (9-20); Calcium 9.1 mg/dL (8.4-10.2); Carbon Dioxide 28 mmol/L (22-32); Chloride 104 mmol/L (98-107); Cholesterol 123 mg/dL (140-199); Estimated Glomerular Filt Rate > 60 mL/min (>60); Glucose 114 mg/dL (80-110); HDL Cholesterol 42 mg/dL (40-60); LDL Cholesterol Calculated 55 mg/dL (<100); Potassium 4.2 mmol/L (3.4-5.1); Sodium 138 mmol/L (137-145); Triglycerides 132 mg/dL (35-150)
[2024-12-16 13:38] LABS: HEMOLYSIS < 15 (0-50); Prostate Specific Antigen 0.472 ng/mL (0.10-4.00)
== END ==
LOC: LAB 11:53
PROVIDERS: PCP Internal Medicine; Referring Provider Internal Medicine; Visit Provider Internal Medicine
DX: E78.2 Mixed hyperlipidemia (principal); Z85.46 Personal history of malignant neoplasm of prostate; I10 Essential (primary) hypertension
CPT/HCPCS: 36415; 80048; 80061; 84153; 84450; 85027